=== PATIENT | female | born 1990 | race Caucasian/White ===

== ENCOUNTER 2016-10-02 13:44 | Emergency (ER) | payer MEDICAID ==
[~2016-10-02] VITALS: Ht 162.6 cm; Wt 78.7 kg
[~2016-10-02 13:44] MED LIST: ALPR-475 PO; BISA10SU54 PR; BUPR-86 PO; CLIN300C93 PO; CYCL-259 PO; HYDR-3144 PO; IBUP800T PO; OXYC-229 PO; SENN1TAB27 PO; SIME80TA16 PO; ZOLP10TA PO
[2016-10-02] MEDS ORDERED: ONDANSETRON 2MG/ML, 2ML ONE (15:40)
[2016-10-02] MEDS ORDERED: MORPHINE SULFATE 4 MG/ML, 1ML ONE (15:40)
[2016-10-02] MEDS ORDERED: CLIN-60 PO (15:46)
[2016-10-02 15:58] LABS: HCG UR OBC PASS
[2016-10-02] MEDS ORDERED: SODIUM CHLORIDE 0.9% 1,000ML IVBOLUS ONE (16:00)
[2016-10-02] MEDS ORDERED: ONDANSETRON 2MG/ML, 2ML IVPush ONE (16:00)
[2016-10-02] MEDS ORDERED: MORPHINE SULFATE 4 MG/ML, 1ML IVPush PRN (16:00)
[2016-10-02] MEDS ORDERED: SODIUM CHLORIDE FLUSH 10ML SYR IVF ONE (16:00)
[2016-10-02 16:13] LABS: HEMOGLOBIN 12.8 g/dL (11.7-16.4)
[2016-10-02 16:20] LABS: ASPARTATE AMINO TRANSFERASE 16 U/L (15-37); BLOOD UREA NITROGEN 10 mg/dL (7-18)
[2016-10-02] MEDS ORDERED: METOCLOPRAMIDE 5 MG/ML, 2ML ONE (16:21)
[2016-10-02] MEDS ORDERED: METOCLOPRAMIDE 5 MG/ML, 2ML IVPush ONE (17:30)
[2016-10-02 18:25] VITALS: BP 129/93
== END 2016-10-02 18:26 | disposition home or self-care (01) ==
LOC: ED 17:48
DX: K91.89 Other postprocedural complications and disorders of digestive system (principal); N99.89 Other postprocedural complications and disorders of genitourinary system; R10.33 Periumbilical pain; R11.2 Nausea with vomiting, unspecified
CPT/HCPCS: 36415; 80053; 81001; 81025; 83690; 85025; 87040; 87086; 96361; 96374; 96375; 99285; J2405; J2765; J7030